=== PATIENT | female | born 1975 | race Caucasian/White ===

== ENCOUNTER 2016-05-27 10:34 | Emergency (ER) | payer MEDICARE, OTHER ==
[~2016-05-27] VITALS: Ht 162.6 cm; Wt 95.5 kg
[~2016-05-27 10:34] MED LIST: DULO20CA PO; METH500T7 PO; NAPR500T PO; OMEP20TA86 PO; QTP25T PO; TEMA30CA PO; ZES20T PO; [UNRECOGNIZED DRUG - CODE] PO
[2016-05-27 10:47] VITALS: BP 137/92; PULSE 82; RESP 18; O2SAT 96
[2016-05-27] MEDS ORDERED: 0.9% Sodium Chloride 1,000 ML IV ONE (11:13)
--- NOTE | 2016-05-27 11:13 | ED.REPORT ---
HPI-Dizziness / Weakness Date of Service May 27, 2016 ED Provider: History of Present Illness: 41yo female with 2 weeks of reported intermittent dizziness, today c/o L sided tingling in arm and hands. Mom reports some change in speech from baseline. No head injury or blood thinners. Pt[facility]. Pt. 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) Nursing Notes Stated Complaint: DIZZY SPELLS, LEFT SIDE OF BODY TINGLING Chief Complaint: Neuro Symptoms/ Deficits Nursing Notes Reviewed: Yes Allergies: Coded Allergies: Penicillins (Verified Allergy, Unknown, 04/04/15) Sulfa (Sulfonamide Antibiotics) (Verified Allergy, Unknown, 04/04/15) amoxicillin (Verified Allergy, Unknown, 04/04/15) Scheduled ([Vit B]) 800 MG PO DAILY Amphet Asp/Amphet/D-Amphet (Adderall) 30 Mg Tablet 30 MG PO DAILY Aripiprazole (Abilify) 15 Mg Tablet 15 MG PO DAILY Ciprofloxacin (Cipro) 500 Mg Tablet 500 MG PO BID Gemfibrozil (Gemfibrozil) 600 Mg Tablet 600 MG PO BID Lisinopril (Lisinopril) 20 Mg Tablet 20 MG PO DAILY Venlafaxine ER (Effexor XR) 75 Mg Capsule 75 MG PO DAILY Venlafaxine ER (Effexor XR) 150 Mg Capsule 150 MG PO DAILY General Time Seen by MD: 11:07 Chief Complaint Dizzy, Lightheaded, Other (L sided tingling) Hx Obtained From: Patient Arrived By: Walk-in Onset Occurred: More than a week ago... (2 weeks) Context of Onset: At rest Symptom Duration: Waxes and wanes Location: : No pain Severity: Current: No pain currently Severity: Maximum: No pain Recent Healthcare: No recent doctor visit Similar Sx Previous: No Risk Factors CVA Risk Stratification Risk factors reviewed Past Medical History Past Medical History Sleep apnea Reports: Hypertension Past Surgical History None Smoking History Never Smoker Social History Alcohol Use: In recovery Drug Use: Denies drug use (in recovery) Other Social History: Good social support Ambulatory Status Independent Review of Systems Constitutional: Denies: Chills, Fever Respiratory: Denies: Shortness of breath Cardiovascular: Denies: Chest pain GI: Denies: Abdominal pain Neurologic: Reports: Dizziness, Numbness, Denies: Focal weakness, Headache, Slurred speech Physical Exam Initial Vital Signs Initial VS: Reviewed General/Constitutional: Awake, Alert, No acute distress, Not toxic appearing Head / Eyes: Atraumatic, Normocephalic, PERRL, EOMI Respiratory / Chest: Atraumatic, Breath sounds NL, Breath sounds = bilat, No respiratory distress Cardiovascular: Heart rate NL, Regular rhythm, Heart sounds NL Neurologic: Oriented X3, Speech NL, No motor deficits, No sensory deficits, CN II - XII intact Speech: Negative: Garbled, Slow, Slurred ENT: Airway patent, Mucous membranes moist, Pharynx NL, No trismus, Tympanic membs NL Neck: Supple, Full range of motion, No adenopathy Abdomen: Soft, Non-tender Interpretation & Diagnostics Lab Results Interpretation Test 05/27/16 12:16 05/27/16 12:17 05/27/16 13:25 White Blood Count 6.5th/mm3 (3.8-10.1) Red Blood Count 4.43mil/mm3 (3.90-5.20) Hemoglobin 12.4g/dL (12.0-15.6) Hematocrit 37.9% (35.0-46.0) Mean Corpuscular Volume 85.6fL (81-100) Mean Corpuscular Hemoglobin 28.0pg (27.0-35.0) Mean Corpuscular Hemoglobin Concent 32.7% (32.0-37.0) Red Cell Distribution Width 12.7% (12.3-15.4) Platelet Count 358bil/L (150-400) Neutrophils (%) (Auto) 62.4% (40-74) Lymphocytes (%) (Auto) 27.0% (14-46) Monocytes (%) (Auto) 8.3% (4-12) Eosinophils (%) (Auto) 1.7% (0-5) Basophils (%) (Auto) 0.3% (0-3) Prothrombin Time 9.9sec (8.1-12.5) Prothromb Time International Ratio 0.93ratio Activated Partial Thromboplast Time 25.4sec (22.8-33.0) Sodium Level 140mEq/L (134-144) Potassium Level 4.2mEq/L (3.5-5.2) Chloride Level 104mEq/L (97-108) Carbon Dioxide Level 20mmol/L (18-29) Blood Urea Nitrogen 10mg/dL (6-24) Creatinine 0.56mg/dL (0.57-1.00) Estimat Glomerular Filtration Rate 172mL/min (>59) Glucose Level 108mg/dL (60-99) Calcium Level 9.0mg/dL (8.5-10.1) Total Bilirubin 0.3mg/dL (0.0-1.2) Aspartate Amino Transf (AST/SGOT) 21U/L (0-50) Alanine Aminotransferase (ALT/SGPT) 35U/L (0-32) Alkaline Phosphatase 46U/L (25-150) Troponin T 0.010ug/L (0.0-0.011) Total Protein 6.4g/dL (6.4-8.4) Albumin 4.0g/dL (3.4-5.0) Thyroid Stimulating Hormone (TSH) 2.270uIU/mL (0.450-4.500) Hold [place]iam Top Tube Received (Received) Urine Color Yellow (YELLOW) Urine Appearance Hazy (CLEAR,HAZY) Urine pH 5.5 (5.0-8.0) Urine Specific Allyn >1.030 (1.003-1.035) Urine Protein Negativemg/dL (NEG,TRACE) Urine Glucose (UA) Negativemg/dL (NEGATIVE) Urine Ketones Negativemg/dL (NEGATIVE) Urine Occult Blood Moderate (NEGATIVE) Urine Nitrite Positive (NEGATIVE) Urine Bilirubin Negative (NEGATIVE) Urine Urobilinogen Normalmg/dL (NORMAL) Urine Leukocyte Esterase Trace (NEGATIVE) Urine RBC 3-10/hpf (0-2) Urine WBC 11-50/hpf (0-5) Urine Epithelial Cells Occasional/hpf (NONE-MOD) Urine Crystals None seen (NONE SEEN) Urine Bacteria Many/hpf (NONE-FEW) Urine Hyaline Casts None/lpf (NONE) Urine Granular Casts None seen (NONE SEEN) Urine Waxy Casts None seen (NONE SEEN) Urine Red Blood Cell Casts None seen (NONE SEEN) Urine White Blood Cell Casts None seen (NONE SEEN) Urine Mucus None seen (None Seen) Urine Trichomonas None seen (NONE SEEN) Urine Yeast None (NONE SEEN) Urinalysis Comment None Urine Culture Reflexed Indicated CT Head Interpretation Patient Name: YADIRA ARZOLA MR#: [id number] Location: [facility] – [place] Ordering Phys: Jose F Bakrsdale PAC Date of Service: 05/27/16 1136 PROCEDURE: CT BRAIN WITHOUT CONTRAST ([id number]) INDICATIONS: dizziness TECHNIQUE: Noncontrast 4.5 mm thick angled axial sections acquired from the foramen magnum to the vertex, with coronal reformats. COMPARISON: None. FINDINGS: Image quality: Good CSF spaces: Basal cisterns are patent. No extra-axial fluid collections. Ventricles are normal in size and shape. Brain: No midline shift. No intracranial masses or hemorrhage. Rand-white matter interface is normal. Skull and face: Calvarium and visualized facial bones are intact, without suspicious lesions. Sinuses: Visualized sinuses and mastoids are clear. IMPRESSION: No abnormalities found intracranially. Sinuses and mastoids are clear as well. Dictated by: Oscar Giordano M.D. on 05/27/2016 at 12:10 Approved by: Oscar Giordano M.D. on 05/27/2016 at 12:10 Re-Eval/Medical Decision Med Decision/Clinical Course Pt. evaluated by Dr. Evans who advised head CT and TSH be added to initial set of orders to aid in determining potential etiology of symptoms. Labs revealed UTI which may explain some of her symptoms. I discussed with Pt. need for follow up and to Return to ED iof anything worsens Counseled Regarding: Diagnosis, Lab results, Need for follow-up, When/why to return to ED Patient Discharge & Departure Impression: Primary Impression: UTI (urinary tract infection) Urinary tract infection type: acute cystitis Hematuria presence: without hematuria Qualified Code: N30.00 - Acute cystitis without hematuria Additional Impression: Dizziness Disposition: Home Patient Instructions: Urinary Tract Infection in Women (DC) Additional Instructions: Push fluids, take meds as prescribed. Follow up with your doctor on 05/29 for recheck, return to ER if anything worsens. Referrals: OTHER,PHYSICIAN (PCP) 3 to 4 Days recheck ua EDSupervising Provider for APC: Jonna Evans MD Attending Statement I, Dr Evans, spent [id number] time with this patient and agree with the exam and disposition of this patient. Jose F Barksdale May 27, 2016 11:13 Jonna Evans MD May 27, 2016 16:14 Push fluids, take meds as prescribed. Follow up with your doctor on 05/29 for recheck, return to ER if anything worsens. Referrals: OTHER,PHYSICIAN (PCP) 3 to 4 Days recheck ua EDSupervising Provider for APC: Jonna Evans MD Attending Statement I, Dr Evans, spent [id number] time with this patient and agree with the exam and disposition of this patient. Jose F Barksdale PAC May 27, 2016 11:13 Jonna Evans MD May 27, 2016 16:14
--- NOTE | 2016-05-27 12:12 | DRSVH ---
PROCEDURE: CT BRAIN WITHOUT CONTRAST ([id number]) INDICATIONS: dizziness TECHNIQUE: Noncontrast 4.5 mm thick angled axial sections acquired from the foramen magnum to the vertex, with c oronal reformats. COMPARISON: None. FINDINGS: Image quality: Good CSF spaces: Basal cisterns are patent. No extra-axial fluid collections. Ventricles are normal in size and shape. Brain: No midline shift. No intracranial masses or hemorrhage. Rand-white matter interface is norm al. Skull and face: Calvarium and visualized facial bones are intact, without suspicious lesions. Sinuses: Visualized sinuses and mastoids are clear. IMPRESSION: No abnormalities found intracranially. Sinuses and mastoids are clear as well. Dictated by: Oscar Giordano M.D. on 05/27/2016 at 12:10 Approved by: Oscar Giordano M.D. on 05/27/2016 at 12:10
[2016-05-27 12:20] LABS: BASOPHILS % (AUTO) 0.3 % (0-3); EOSINOPHILS % (AUTO) 1.7 % (0-5); MONOCYTES % (AUTO) 8.3 % (4-12); Mean Corpuscular Volume 85.6 fL (81-100); NEUTROPHILS % (AUTO) 62.4 % (40-74); Platelet Count 358 bil/L (150-400)
[2016-05-27 12:42] LABS: INR 0.93 ratio
[2016-05-27 13:03] LABS: TROPONIN T 0.01 ug/L (0.0-0.011)
[2016-05-27] MEDS ORDERED: VENL75CA PO (13:04)
[2016-05-27] MEDS ORDERED: VENL150C PO (13:04)
[2016-05-27] MEDS ORDERED: GEMF600T3 PO (13:04)
[2016-05-27 13:15] VITALS: BP 129/92; PULSE 64; RESP 15; O2SAT 97
[2016-05-27] MEDS ORDERED: AMPH30TA3 PO (13:51)
[2016-05-27] MEDS ORDERED: ARIP15TA2 PO (13:51)
[2016-05-27] MEDS ORDERED: LISI-567 PO (13:51)
[2016-05-27] MEDS ORDERED: VIT B PO (13:51)
[2016-05-27 14:04] LABS: APPEARANCE,URINE HAZY (CLEAR,HAZY); COLOR,URINE YELLOW (YELLOW); OCCULT BLOOD,URINE MODERATE (NEGATIVE); PH,URINE 5.5 (5.0-8.0); UROBILINOGEN,URINE NORMAL (NORMAL)
[2016-05-27] MEDS ORDERED: CIPR-231 PO (14:43)
--- NOTE | 2016-05-27 14:45 | NUR ---
Evaluation completed. Rec: Thin/Regular. Medication as tolerated. [employer] to sign off. Please go to "Notes" then click on "Assessments and Notes" (bottom left corner of screen). Then select appropriate discipline tab on top of screen.
[2016-05-27 14:51] VITALS: BP 125/78; PULSE 61; RESP 16; O2SAT 95
== END 2016-05-27 14:53 | disposition home or self-care (01) ==
LOC: SED 10:34
DX: N39.0 Urinary tract infection, site not specified (principal); R42 Dizziness and giddiness; B96.20 Unspecified Escherichia coli [E. coli] as the cause of diseases classified elsewhere; I10 Essential (primary) hypertension; Z88.0 Allergy status to penicillin; Z88.1 Allergy status to other antibiotic agents; Z88.2 Allergy status to sulfonamides
CPT/HCPCS: 70450; 80053; 81000; 81002; 81025; 82948; 84443; 84484; 85025; 85610; 85730; 87086; 87088; 87186; 92610; 93005; 96360; 99285; J7030